=== PATIENT | female | born 1945 | race Caucasian/White ===

== ENCOUNTER → 2016-11-09 | Outpatient (CLI) | payer MEDICARE, OTHER ==
[~2016-11-09] MED LIST: ASPIRIN EC81 MG PO; CALCIUM 600+D31 EACH PO; CHLORTHALIDONE25 MG PO; CLOTRIMAZOLE-BE45 GM TOP; COZAAR100 MG PO; FISH OIL1 GM PO; GAVISCON1 TAB PO; GLUCOSAMINE &1 EAC1 PO; LOTRISONE15 GM TOP; ORAZINC220 MG PO; PRAVACHOL80 MG PO; PRESERVISION A1 EAC2 PO; TYLENOL500 MG PO; ULTRAM50 MG PO; VITAMIN D31000 UNI1 PO
== END | disposition short-term general hospital (02) ==
LOC: CLONCO 10-26 12:45
DX: C50.911 Malignant neoplasm of unspecified site of right female breast (principal); R53.83 Other fatigue

== ENCOUNTER → 2016-12-21 | Outpatient (CLI) | payer MEDICARE, OTHER | END | disposition short-term general hospital (02) | LOC: CLONCO 07:09 | DX: C50.911 Malignant neoplasm of unspecified site of right female breast (principal); Z90.11 Acquired absence of right breast and nipple ==